=== PATIENT | male | born 1975 | race Caucasian/White ===

== ENCOUNTER 2023-11-06 16:41 | Emergency (ER) | payer SELFPAY ==
[2023-11-06 16:43] VITALS: BP 110/88
[2023-11-06 17:09] LABS: COVID-19 Antigen Negative (Negative)
[2023-11-06] MEDS: NSS 1000 IV (17:48)
[2023-11-06] MEDS: TYLENOL 1000 MG PO (17:50)
[2023-11-06] MEDS: MOTRIN 600 MG PO (17:50)
[2023-11-06] MEDS: DECADRON 10 MG IV (17:51)
[2023-11-06] MEDS: DUONEB 3 ML INH (17:51)
[2023-11-06 18:05] LABS: % Basophils 0.6 % (0-2); % Immature Granulocytes 0.4 % (0-0.5); % Lymphocytes 17.5 % (20.5-51.1); % Monocytes 10.6 % (1.7-9.3); % Neutrophils 69.9 % (42.2-75.2); Absolute Basophils 0.1 10^3/uL (0-0.2); Absolute Eosinophils 0.1 10^3/uL (0-0.7); Absolute Immature Granulocytes 0.1 10^3/uL (0-0.05); Absolute Lymphocytes 2.4 10^3/uL (1.2-3.4); Absolute Monocytes 1.4 10^3/uL (0.1-0.6); Absolute Neutrophils 9.4 10^3/uL (1.4-6.5); Hematocrit 41.5 % (39.0-52.0); Hemoglobin 14.6 g/dL (13.0-18.0); Mean Corp Hgb Conc. 35.2 g/dL (33.0-37.0); Mean Corpuscular Hgb 30.3 pg (27.0-31.0); Mean Corpuscular Volume 86.1 fL (80.0-94.0); Mean Platelet Volume 9.9 fL (7.4-10.4); Nucleated Red Blood Cells % 0 % (-); Platelet Count 358 10^3/uL (130-400); Red Blood Cell Count 4.82 10^6/uL (4.70-6.10); Red Cell Dist. Width 12.2 % (11.5-14.5); White Blood Cell Count 13.5 10^3/uL (4.8-10.8)
[2023-11-06 18:29] LABS: ALT (SGPT) 18 U/L (0-50); AST (SGOT) 19 U/L (17-59); Albumin 3.2 g/dl (3.5-5.0); Alkaline Phosphatase 112 U/L (38-126); Blood Urea Nitrogen 10 mg/dl (9-20); Calcium 8.9 mg/dl (8.4-10.2); Carbon Dioxide 29 mmol/L (22-30); Chloride 94 mmol/L (98-107); Glucose 111 mg/dl (70-99); Potassium 3.8 mmol/L (3.5-5.1); Sodium 131 mmol/L (135-145); Total Bilirubin 0.8 mg/dl (0.2-1.3); Total Protein 6.4 g/dl (6.3-8.2); eGFR > 60.00
--- NOTE | 2023-11-06 18:29 | ED.GENMED ---
History of Present Illness
General
Chief Complaint: Fever
Source: patient and family ()
Exam Limitations: none
Time Seen by Provider: 11/06/23 17:26
Nursing documentation reviewed up to this point in time: agreed with
Travel History
Have you had any contact with someone who has COVID-19?: No
Do you have any symptoms of coronavirus? Fever > 100 degrees, chills, cough, shortness of breath, sore throat, loss of taste or smell, muscle aches, or headache?: Yes
Symptoms:: see triage note
History of Present Illness
History of Present Illness:
The patient is a 48-year-old man with a past medical history of borderline hypertension and hyperlipidemia who is a smoker and comes in with complaints of intermittent shortness of breath for 1 week and fevers and chills for about 4 days. Patient
admits to nasal congestion and mild cough. He denies sore throat. He denies headache. He reports his family had COVID last week but he did not test positive for COVID last week. He denies abdominal pain, vomiting, and diarrhea.
Past History
Past History
ED Past Medical History: HTN and Hypercholesterolemia
ED Past Surgical History: Orthopedic
Social History
Tobacco: Non-smoker
Alcohol: Occasional
Drug: None
Personal:
Living: with family
Employment: Employed
Family History
Family History: Other
Review of Systems
Review of Systems
Allergies reviewed?: Yes
All Other Systems: ROS reviewed and negative except as documented in HPI and ROS
Constitutional: Reports fever, fatigue and chills
EENT: Reports other (Runny nose)
Respiratory: Reports cough and trouble breathing
Cardiac: Denies chest pain
ABD/GI: Reports anorexia
: Reports no symptoms
Musculoskeletal: Reports back pain (Severe body aches, neck pain, back pain)
Neurological: Reports headache
Endocrine: Reports no symptoms
Hematologic/Lymphatic: Reports no symptoms
Psychiatric: Reports no symptoms
Phy Exam
Physical Exam
Physical Exam:
Physical Exam
General: Patient appears flushed but is nontoxic. Conversational
Neck: supple. no meningeal signs. normal posterior pharynx. no pharyngeal erythema or exudate
Heart: Tachycardic. No murmur
Lungs: No tachypnea. Clear breath sounds. No wheezing. Speaks in full sentences
Abdomen: normal bowel sounds. not tender. no CVAT
Neuro: alert and oriented. no focal neurological deficits
Skin: no rash
Psychiatric: well kept. interactive and cooperative
Extremities: no edema. no calf tenderness. negative homans. good distal pulses
Course
Orders/Labs/Results
Orders:
Orders
11/06/23 16:48
COVID-19 Antigen Urgent
Source: Nasal Swab
Influenza A+B Rapid Molecular Urgent
[place] Source: Nasal Swab
Specimen Description:
11/06/23 17:31
0.9% Sodium Chloride 1000 ml [Nss] 1,000 ml IV BOLUS
CR Chest - 2 Views Urgent
Comment:
Reason For Exam: fever
11/06/23 17:45
Acetaminophen [Tylenol] 1,000 mg PO NOW STA
Ibuprofen [Motrin] 600 mg PO NOW STA
11/06/23 17:46
Dexamethasone Sod Phosphate [Decadron] 10 mg IV NOW STA
Ipratropium/Albuterol Sulfate [Duoneb] 3 ml INH R NOW ONE
11/06/23 17:47
Electrocardiogram (*1) Urgent
Reason for Study: Shortness of Breath
EKG- Treatment ONCE
Complete Blood Count/With Diff Urgent
Comprehensive Metabolic Panel Urgent
Monotest Urgent
11/06/23 17:48
Troponin I Urgent
11/06/23 19:24
Doxycycline [Vibramycin] 100 mg PO NOW STA
Abnormal Lab Results
11/06/23
17:47
WBC 13.5 H 10^3/uL
(4.8-10.8)
Abs Immat Gran (auto) 0.1 H 10^3/uL
(0-0.05)
Absolute Neuts (auto) 9.4 H 10^3/uL
(1.4-6.5)
Absolute Monos (auto) 1.4 H 10^3/uL
(0.1-0.6)
Lymphocytes % 17.5 L %
(20.5-51.1)
Monocytes % 10.6 H %
(1.7-9.3)
Sodium 131 L mmol/L
(135-145)
Chloride 94 L mmol/L
(98-107)
Glucose 111 H mg/dl
(70-99)
Albumin 3.2 L g/dl
(3.5-5.0)
11/06/23 17:47
11/06/23 17:47
Vital Signs
Initial and Last Documented VS:
Initial Vital Signs
Temp Pulse Resp BP Pulse Ox
102.1 F H 127 20 110/88 94
11/06/23 16:43 11/06/23 16:43 11/06/23 16:43 11/06/23 16:43 11/06/23 16:43
Last Documented Vital Signs
Temp Pulse Resp BP Pulse Ox
102.1 F H 127 20 110/88 97
11/06/23 16:43 11/06/23 16:43 11/06/23 16:43 11/06/23 16:43 11/06/23 17:19
MDM/Problems Addressed
Differential Diagnosis Includes:
Influenza, COVID, pneumonia, COPD
MDM/Problems Addressed:
Patient presents with shortness of breath for 1 week and acute fevers and chills for 4 days
Chronic conditions affecting care:
Given pt has HTN and hyperlipidemia he is at increased risk of CAD
Chronic conditions affecting care: HTN
*Radiology
Radiology exam reviewed: preliminary read by ED provider (Chest x-ray reviewed by me. Infiltrates seen.) and radiology read reviewed
*Pulse Oximetry
Patient hypoxic: no
*EKG
Interpreted by ED Provider?: Yes
Interpretation: abnormal
Comparison EKG: no comparison EKG present
Rate: tachycardiac
Rhythm: sinus
[place]: normal axis
Interval: normal interval
QRS Pattern: normal QRS
Ischemia: no ischemia
*[facility] Interpretation
Rate: tachycardiac
Interpretation: abnormal
Rhythm: sinus
*Critical Care Note
Total Time (30-74mins, 75-104mins- exclusive of procedures): Not Applicable
Update Note
Update Note:
Patient is still resting comfortably and breathing comfortably. Patient reports that the nebulizer did not really make much of a difference so decision made to not give patient an albuterol inhaler. For me, he never had any wheezing or tachypnea.
He denies any wheezing.
Patient will be given doxycycline for community-acquired pneumonia
ED Attending Note
-
Portions of this chart may have been created with voice recognition software.� Occasional wrong word or��sound alike� substitutions may have occurred due to the inherent limitations of voice recognition software.
Discharge Plan
Departure
Patient Disposition: Home (Routine Discharge)
Date of Disposition: 11/06/23
Time of Disposition: 19:25
Patient with high blood pressure during this ER visit?: Yes
Condition: Good
Covid-19: Negative COVID-19
Discharge Problem:
Pneumonia
Instructions: Pneumonia
Prescriptions:
New
doxycycline hyclate 100 mg capsule
100 mg PO BID Qty: 13 0RF
prednisone 20 mg tablet
20 mg PO DAILY Qty: 5 0RF
No Action
lorazepam 1 MG tablet
1 mg PO Q6HPRN PRN (Reason: spasm) Qty: 2 0RF
Referrals:
Jl Frank MD [Family Provider] -
Stand Alone Forms: Return to Work
Activity Restrictions/Additional Instructions:
Take 1000 mg of Tylenol every 4-6 hours for fever. In addition to the Tylenol, you can also take 600 mg ibuprofen every 6-8 hours
Interventions
Interventions:
*Risk Screen - Suicide Last Done: 11/06/23 17:19
*General Assessment Last Done: 11/06/23 16:43
*Neglect/Abuse Screening Last Done: 11/06/23 17:19
ED- Fall Risk Assessment Last Done: 11/06/23 17:19
*ED COVID-19 Vaccine History Last Done: 11/06/23 16:43
ED- Neurological Assessment Last Done: 11/06/23 18:03
ED-Skin Assessment Last Done: 11/06/23 18:03
[2023-11-06 18:31] LABS: Monotest Negative (Negative)
[2023-11-06 18:40] LABS: Troponin I < 0.012 ng/ml
[2023-11-06] MEDS: VIBRAMYCIN 100 MG PO (19:31)
== END 2023-11-06 19:44 | disposition home or self-care (01) ==
LOC: EMR 16:41
PROVIDERS: Student in an Organized Health Care Education/Training Program; EMERGENCY PHYSICIAN Emergency Medicine; FAMILY PHYSICIAN Internal Medicine
DX: J18.9 Pneumonia, unspecified organism (principal); I10 Essential (primary) hypertension; E78.00 Pure hypercholesterolemia, unspecified
CPT/HCPCS: 99285; 96374; 94640; 71046; 80053; 84484; 85025; 86308; 87502; 87811; 93005

== ENCOUNTER 2024-05-07 17:39 | Emergency (ER) | payer MEDICAID, SELFPAY ==
[2024-05-07 17:46] VITALS: BP 149/87
--- NOTE | 2024-05-07 19:47 | ED.GENMED ---
History of Present Illness
General
Chief Complaint: Musculo-Skeletal Complaint
Source: patient
Exam Limitations: none
Time Seen by Provider: 05/07/24 19:46
Nursing documentation reviewed up to this point in time: agreed with
History of Present Illness
History of Present Illness:
Patient is a 48-year-old male who presents to the ER complaint of left finger pain. He reports he has had this pain in his left middle finger to the MCP joint for the past several weeks. 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 He has not taken anything for this. He went to urgent care was told is arthritis and was given for naproxen but did not fill it yet. He has taken occasional Motrin. He denies any fever/chills. denies redness.
Pt is right hand dominant. He denies any injury he denies any abrasions lacerations.
Past History
Past History
ED Past Medical History: HTN and Hypercholesterolemia
ED Past Surgical History: Orthopedic
Social History
Tobacco: Non-smoker
Alcohol: Occasional
Drug: None
Personal:
Living: with family
Employment: Employed
Family History
Family History: Other
Review of Systems
Review of Systems
Allergies reviewed?: Yes
All Other Systems: ROS reviewed and negative except as documented in HPI and ROS
Constitutional: Reports no symptoms; Denies fever, fatigue or chills
Musculoskeletal: Reports other (pain to left hand middle finger knuckle region )
Skin: Reports other (denies redness)
Neurological: Reports no symptoms
Psychiatric: Reports no symptoms
Phy Exam
General Physical Exam
General Presentation: well appearing
General age: appears stated age
General Skin: warm and dry
General Habitus: normal
General Mental: alert
General Hydration: appears well hydrated
Neurological Exam
Neurological Exam: alert and oriented x3
Musculoskeletal Exam
Musculoskeletal Exam: other (LUE with strong pulses patient is tender along the left MTP joint no obvious swelling erythema no abrasions or lacerations able to flex and extend finger no tenderness along the flexor sheath no pain with passive tendon
extension )
Skin Exam
Skin Exam: normal color and warm/dry
Psychiatric Exam
Psychiatric Exam: normal mood/affect
Course
Orders/Labs/Results
Orders:
Orders
05/07/24 17:49
Finger(s)/Thumb 2 View Lt [CR Finger(s)/thumb Min 2 Vw Lt] Urgent
Comment:
Reason For Exam: middle finger pain for last couple wks
Indicate Which Finger:: Middle Finger
Vital Signs
Initial and Last Documented VS:
Initial Vital Signs
Temp Pulse Resp BP Pulse Ox
98.0 F 96 16 149/87 98
05/07/24 17:46 05/07/24 17:46 05/07/24 17:46 05/07/24 17:46 05/07/24 17:46
Last Documented Vital Signs
Temp Pulse Resp BP Pulse Ox
98.0 F 96 16 149/87 98
05/07/24 17:46 05/07/24 17:46 05/07/24 17:46 05/07/24 17:46 05/07/24 17:46
MDM/Problems Addressed
Differential Diagnosis Includes:
Not limited to arthritis, tendinitis /overuse syndrome less likely flexor tenosynovitis
MDM/Problems Addressed:
Symptoms are consistent w/ overuse /tendonitis . There is no evidence of infection concerning findings on evaluation for flexor tenosynovitis. X-rays show mild degenerative changes of the proximal interphalangeal joint.
there is no obvious swelling or redness no fever chills. Discussed the importance of trying to rest this is much as possible though he does work and cannot take off work. Will place in a splint to use at work if possible or to use outside of
work. Discussed icing. Will give an injection of steroids here in the ER and discharged on steroids for the next 5 days with elevation as much as possible rest and splint. will d/c w/ outpt f/u by hand .
*Pulse Oximetry
Patient hypoxic: no
*Critical Care Note
Total Time (30-74mins, 75-104mins- exclusive of procedures): Not Applicable
ED Attending Note
-
Portions of this chart may have been created with voice recognition software.� Occasional wrong word or��sound alike� substitutions may have occurred due to the inherent limitations of voice recognition software.
Discharge Plan
Departure
Patient Disposition: Home (Routine Discharge)
Date of Disposition: 05/07/24
Time of Disposition: 20:06
Patient with high blood pressure during this ER visit?: Yes
Covid-19: Not Applicable
Discharge Problem:
Tendonitis
Instructions: Overuse Injuries
Prescriptions:
New
prednisone 50 mg tablet
50 mg PO DAILY Qty: 5 0RF
No Action
lorazepam 1 MG tablet
1 mg PO Q6HPRN PRN (Reason: spasm) Qty: 2 0RF
doxycycline hyclate 100 mg capsule
100 mg PO BID Qty: 13 0RF
prednisone 20 mg tablet
20 mg PO DAILY Qty: 5 0RF
Referrals:
lJ Frank MD [Family Provider] -
Wilmer Phillips MD [Active] -
Activity Restrictions/Additional Instructions:
As discussed you were given a dose of steroids here in the ER. A prescription for steroids was sent to pharmacy to take daily for the next 5 days.
Try to rest as much as possible and wear splint for support
Keep elevated as much as possible when not working. Ice the affected area off-and-on for the next 48 hours for 20 minutes at a time. follow up with hand specialist as needed.
Return if any worsening of symptoms of increased pain swelling redness drainage or red streaking fever chills
Interventions
Interventions:
*Risk Screen - Suicide Last Done: 05/07/24 19:57
*General Assessment Last Done: 05/07/24 19:57
*Neglect/Abuse Screening Last Done: 05/07/24 19:57
Discharge Date and Time
Print Language: MALAYSIAN
[2024-05-07] MEDS: MOTRIN 600 MG PO (20:15)
[2024-05-07] MEDS: DECADRON 10 MG IM (20:16)
[2024-05-07 20:23] VITALS: BP 112/77
[2024-05-07 20:25] VITALS: BP 112/77
== END 2024-05-07 20:53 | disposition home or self-care (01) ==
LOC: EMR 17:39
PROVIDERS: EMERGENCY PHYSICIAN Emergency Medicine; FAMILY PHYSICIAN Internal Medicine
DX: M77.9 Enthesopathy, unspecified (principal); I10 Essential (primary) hypertension
CPT/HCPCS: 99284; 96372; 73140

== ENCOUNTER 2024-09-28 16:30 | Emergency (ER) | payer SELFPAY ==
[2024-09-28 16:42] VITALS: BP 151/81
--- NOTE | 2024-09-28 18:04 | ED.GENMED ---
History of Present Illness
General
Chief Complaint: Musculo-Skeletal Complaint
Source: patient
Exam Limitations: none
Time Seen by Provider: 09/28/24 17:52
History of Present Illness
History of Present Illness:
49yo right hand dominant male presenting for evaluation of left elbow pain x 2 weeks. He states he is klutz but does not recall any specific injury. Pain is located in the lateral aspect of the elbow and worsens with gripping things. He has been
taking ibuprofen without much relief. 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 He believes he has tendonitis and is requesting steroids as this has helped him in the past. No paresthesias.
Past History
Past History
ED Past Medical History: HTN and Hypercholesterolemia
ED Past Surgical History: Orthopedic
Social History
Tobacco: Non-smoker
Alcohol: Occasional
Drug: None
Personal:
Living: with family
Employment: Employed
Family History
Family History: Other
Phy Exam
General Physical Exam
General Presentation: well appearing and no apparent distress
General age: appears stated age
General Skin: warm and dry
General Habitus: normal
General Mental: alert
Musculoskeletal Exam
Musculoskeletal Exam: other (L elbow: No deformity or swelling appreciated. +Tenderness along the lateral proximal forearm. ROM intact. Pain elicited with wrist extension. 2+ radial pulse. )
Skin Exam
Skin Exam: normal color and warm/dry
Psychiatric Exam
Psychiatric Exam: normal mood/affect
Course
Orders/Labs/Results
Orders:
Orders
09/28/24 16:45
Elbow, Left [CR Elbow - Left Min 3 Views ] Urgent
Comment:
Reason For Exam: pain
Vital Signs
Initial and Last Documented VS:
Initial Vital Signs
Temp Pulse Resp BP Pulse Ox
98.2 F 80 16 151/81 98
09/28/24 16:42 09/28/24 16:42 09/28/24 16:42 09/28/24 16:42 09/28/24 16:42
Last Documented Vital Signs
Temp Pulse Resp BP Pulse Ox
98.2 F 80 16 151/81 98
09/28/24 16:42 09/28/24 16:42 09/28/24 16:42 09/28/24 16:42 09/28/24 16:42
MDM/Problems Addressed
Differential Diagnosis Includes:
49yoM here with L elbow pain x 2 weeks. 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 No swelling noted on exam and ROM intact although pain is reproduced with wrist extension. LUE is neurovascularly intact. Differential diagnosis
includes but is not limited to: tendonitis, sprain, overuse injury, less likely fracture
X-rays of elbow obtained which shows arthritic changes without fracture. Suspect tendonitis. Patient requesting a prescription for prednisone as this has helped him in the past. Will trial steroid course. Supportive care discussed. Advised f/u with
orthopedics if symptoms persist.
*Critical Care Note
Total Time (30-74mins, 75-104mins- exclusive of procedures): Not Applicable
ED Attending Note
-
Portions of this chart may have been created with voice recognition software.� Occasional wrong word or��sound alike� substitutions may have occurred due to the inherent limitations of voice recognition software.
Discharge Plan
Departure
Patient Disposition: Home (Routine Discharge)
Date of Disposition: 09/28/24
Time of Disposition: 18:06
Patient with high blood pressure during this ER visit?: Yes
Discharge Problem:
Left elbow tendonitis
Instructions: Overuse Injuries (DC)
Prescriptions:
New
prednisone 20 mg tablet
40 mg PO DAILY 5 Days Qty: 10 0RF
No Action
lorazepam 1 MG tablet
1 mg PO Q6HPRN PRN (Reason: spasm) Qty: 2 0RF
doxycycline hyclate 100 mg capsule
100 mg PO BID Qty: 13 0RF
prednisone 20 mg tablet
20 mg PO DAILY Qty: 5 0RF
prednisone 50 mg tablet
50 mg PO DAILY Qty: 5 0RF
Referrals:
Faraz Estrada MD [Active] -
Activity Restrictions/Additional Instructions:
Take prednisone as prescribed. Apply heat to affected area and rest.
Please follow-up with orthopedics.
Interventions
Interventions:
*Risk Screen - Suicide Last Done: 09/28/24 16:42
*General Assessment Last Done: 09/28/24 18:42
*Neglect/Abuse Screening Last Done: 09/28/24 16:42
ED- Fall Risk Assessment Last Done: 09/28/24 18:42
*ED COVID-19 Vaccine History Last Done: 09/28/24 18:42
*Nursing Disposition Last Done: 09/28/24 18:44
ED-Musculoskeletal Assessment Last Done: 09/28/24 18:42
Discharge Date and Time
Discharge Date/Time: 09/28/24 18:30
Print Language: SYRI[place]
== END 2024-09-28 18:30 | disposition home or self-care (01) ==
LOC: EMR 16:30
PROVIDERS: EMERGENCY PHYSICIAN Emergency Medicine
DX: M77.8 Other enthesopathies, not elsewhere classified (principal); M25.522 Pain in left elbow; I10 Essential (primary) hypertension
CPT/HCPCS: 99283; 73080

== ENCOUNTER 2025-04-24 09:42 | Emergency (ER) | payer SELFPAY ==
[2025-04-24 09:42] VITALS: BMI 31.6
[2025-04-24 09:58] VITALS: BP 115/61
[2025-04-24 11:13] VITALS: BP 126/71
--- NOTE | 2025-04-24 11:34 | ED.GENMED ---
History of Present Illness
General
Chief Complaint: Breathing Problem
Source: patient
Exam Limitations: none
Time Seen by Provider: 04/24/25 11:20
Nursing documentation reviewed up to this point in time: agreed with except (Denies chest pain to me)
History of Present Illness
History of Present Illness:
49-year-old male with a past medical history of hypertension, hyperlipidemia, heavy smoker who presents to the emergency department for evaluation of shortness of breath. Patient reports onset of symptoms a few days ago and have been constant and
somewhat worsening over that period of time. He reports sensation of tightness and awareness of his breathing. He denies any chest pain. He reports occasional cough chronically but no significant change recently. Denies any fever or chills or
URI symptoms. He has not noticed any swelling or pain in the legs. He denies any other acute complaints. He says he has occasionally had some shortness of breath related to smoking but symptoms today are unusual for him; he says he had a prior
episode of pneumonia that felt similar. He denies any known cardiac history or history of DVT/PE.
Past History
Past History
ED Past Medical History: HTN and Hypercholesterolemia
ED Past Surgical History: Orthopedic
Social History
Tobacco: Non-smoker
Alcohol: Occasional
Drug: None
Personal:
Living: with family
Employment: Employed
Family History
Family History: Other
Review of Systems
Review of Systems
All Other Systems: ROS reviewed and negative except as documented in HPI and ROS
Constitutional: Denies fever or chills
EENT: Denies sore throat or runny nose
Respiratory: Reports trouble breathing; Denies cough
Cardiac: Denies chest pain, diaphoresis or palpitations
ABD/GI: Denies abdominal pain or nausea
Musculoskeletal: Denies edema
Neurological: Denies dizzy or headache
Phy Exam
Physical Exam
Physical Exam:
General: Awake, alert, oriented x3; no acute distress
Head: Normocephalic, atraumatic
Eyes: Conjunctiva normal
Throat: Airway intact, handling secretions
Neck: Trachea midline, no JVD
Lungs: Clear to auscultation bilaterally, no wheezing, rales, rhonchi; no tachypnea or hypoxia
Heart: Regular rate and rhythm, no murmurs, gallops, or rubs appreciated
Neuro: No gross deficits
Extremities: No edema in extremities, no calf tenderness, equal pulses in all extremities
Scores
Heart Failure Risk
Heart Failure Risk Score: Not Applicable
Heart Score for Chest Pain Patients
STEMI patient?: Not applicable
Withdrawal Assessment of Alcohol
Withdrawal Assessment Completed?: Not applicable
Course
Orders/Labs/Results
Orders:
Orders
04/24/25 10:01
ECG [Electrocardiogram (*1)] Urgent
Reason for Study: Shortness of Breath
Other Reason for Exam: chest discomfort
EKG- Treatment ONCE
04/24/25 11:20
CR Chest - 2 Views Urgent
Comment:
Reason For Exam: sob
04/24/25 11:33
Ipratropium/Albuterol Sulfate [Duoneb] 3 ml INH R NOW STA
04/24/25 11:35
Complete Blood Count/With Diff Urgent
Comprehensive Metabolic Panel Urgent
D-Dimer Urgent
NT-proBNP Urgent
Troponin I Urgent
Abnormal Lab Results
04/24/25
11:35
RBC 4.65 L 10^6/uL
(4.70-6.10)
MCHC 32.4 L g/dL
(33.0-37.0)
Absolute Monos (auto) 0.9 H 10^3/uL
(0.1-0.6)
Monocytes % 10.0 H %
(1.7-9.3)
Glucose 118 H mg/dl
(70-99)
Total Protein 6.2 L g/dl
(6.3-8.2)
04/24/25 11:35
04/24/25 11:35
Vital Signs
Initial and Last Documented VS:
Initial Vital Signs
Temp Pulse Resp BP Pulse Ox
37.0 C 80 16 115/61 97
04/24/25 09:58 04/24/25 09:58 04/24/25 09:58 04/24/25 09:58 04/24/25 09:58
Last Documented Vital Signs
Temp Pulse Resp BP Pulse Ox
37.0 C 66 15 127/66 96
04/24/25 12:00 04/24/25 12:45 04/24/25 12:45 04/24/25 12:00 04/24/25 12:45
MDM/Problems Addressed
Differential Diagnosis Includes:
COPD/bronchitis, pneumonia, pneumothorax, pulmonary embolism, CHF, angina, anemia, anxiety
MDM/Problems Addressed:
49-year-old male with history as noted presents to the ER for evaluation of shortness of breath over the past few days. He is a heavy smoker. Vitals and exam as above. He does seem to be breathing comfortably no appreciable wheezing, could be
mild bronchitis given his smoking history reasonable to trial DuoNeb. Will check labs including a CBC to rule out anemia, CMP. Will check D-dimer, troponin, proBNP. Check an EKG. Check chest x-ray. Will monitor closely reassess after the above.
Labs reviewed: CBC unremarkable�no anemia, CMP no clinically significant abnormalities. proBNP normal, troponin undetectable. EKG shows sinus rhythm. Chest x-ray showed no acute disease. D-dimer negative. Suspect likely some mild bronchitis or
perhaps an element of developing emphysema. Will start on steroid course, albuterol, inhaled steroid/LABA. Patient has follow-up with his primary care physician tomorrow. Stable for discharge. Spoke about return precautions all questions
answered.
Chronic conditions affecting care:
Smoker
*Radiology
Radiology exam reviewed: preliminary read by ED provider
*Pulse Oximetry
SaO2: 97
Oxygen Mode of Delivery: Room air
Patient hypoxic: no (97%)
*EKG
Interpreted by ED Provider?: Yes
Heart Rate: 72
Rate: normal
Rhythm: sinus
[place]: normal axis
Interval: normal interval
QRS Pattern: normal QRS
Ischemia: no ischemia
*Critical Care Note
Total Time (30-74mins, 75-104mins- exclusive of procedures): Not Applicable
Data Reviewed
Review of Other/Old Records Reveals: Labs and Records
Source: patient, records and family (Daughter)
ED Attending Note
-
Portions of this chart may have been created with voice recognition software.� Occasional wrong word or��sound alike� substitutions may have occurred due to the inherent limitations of voice recognition software.
Discharge Plan
Departure
Patient Disposition: Home (Routine Discharge)
Date of Disposition: 04/24/25
Time of Disposition: 13:28
Patient with high blood pressure during this ER visit?: No
Discharge Problem:
Dyspnea
Instructions: Acute Bronchitis, Adult (DC)
Prescriptions:
New
prednisone 10 mg Tablet
See Rx Instructions .ROUTE .COMPLEX Qty: 45 0RF
Rx Instructions:
Take By Mouth:
50 mg daily x3 days, 40 mg daily x3 days,
30 mg daily x3 days, 20 mg daily x3 days,
10 mg daily x3 days
albuterol sulfate [Ventolin HFA] 90 mcg/actuation HFA aerosol inhaler
2 puff inhalation Q6H PRN (Reason: shortness of breath or wheezing) Qty: 8.5 0RF
budesonide-formoterol 80-4.5 mcg/actuation HFA aerosol inhaler
1 puff inhalation BID Qty: 10.2 0RF
No Action
lorazepam 1 MG tablet
1 mg PO Q6HPRN PRN (Reason: spasm) Qty: 2 0RF
doxycycline hyclate 100 mg capsule
100 mg PO BID Qty: 13 0RF
prednisone 20 mg tablet
20 mg PO DAILY Qty: 5 0RF
prednisone 50 mg tablet
50 mg PO DAILY Qty: 5 0RF
prednisone 20 mg tablet
40 mg PO DAILY 5 Days Qty: 10 0RF
Referrals:
Jl Frank MD [Family Provider, Internal Medicine] - Tomorrow
Activity Restrictions/Additional Instructions:
Thank you for visiting the Emergency Department at [facility].
1. Please schedule a follow up appointment as directed. Call first thing tomorrow morning to make an appointment.
2. If indicated, please take your medications as instructed and indicated on discharge paperwork.
3. If any of your symptoms do not improve, or persist, or become more severe within 6-12 hours, please return to the emergency department for further care.
4. Please return to the emergency department if you develop a headache, neck pain/stiffness, fever greater than 100.4F, chest pain, shortness of breath, persistent nausea, vomiting, slurred speech, difficulty walking, numbness/tingling, weakness,
signs of infection or any other symptoms that are worrisome to you.
Please call [phone] if you have any questions.
Interventions
Interventions:
*Risk Screen - Suicide Last Done: 04/24/25 12:05
*General Assessment Last Done: 04/24/25 12:05
*Neglect/Abuse Screening Last Done: 04/24/25 12:05
*ED- Fall Risk Assessment Last Done: 04/24/25 12:05
ED- Cardiac Assessment Last Done: 04/24/25 12:05
ED- Pulmonary Assessment Last Done: 04/24/25 12:05
Discharge Date and Time
Print Language: GERMAN
[2025-04-24 11:58] LABS: Hematocrit 42.6 % (39.0-52.0); Hemoglobin 13.8 g/dL (13.0-18.0); Mean Corp Hgb Conc. 32.4 g/dL (33.0-37.0); Mean Corpuscular Volume 91.6 fL (80.0-94.0); Nucleated Red Blood Cells % 0 % (-); Platelet Count 255 10^3/uL (130-400); Red Cell Dist. Width 13.3 % (11.5-14.5)
[2025-04-24 12:00] VITALS: BP 127/66
[2025-04-24] MEDS: DUONEB 3 ML INH (12:03)
[2025-04-24 12:13] LABS: ALT (SGPT) 17 U/L (0-50); AST (SGOT) 17 U/L (17-59); Albumin 3.7 g/dl (3.5-5.0); Alkaline Phosphatase 101 U/L (38-126); Blood Urea Nitrogen 13 mg/dl (9-20); Calcium 8.8 mg/dl (8.4-10.2); Carbon Dioxide 29 mmol/L (22-30); Chloride 104 mmol/L (98-107); Estimated Creatinine Clearance 119 ml/min; Glucose 118 mg/dl (70-99); Potassium 4.1 mmol/L (3.5-5.1); Sodium 137 mmol/L (135-145); Total Protein 6.2 g/dl (6.3-8.2); eGFR > 60.00
[2025-04-24 12:19] LABS: D-Dimer < 0.27 ug/mlFEU (0.00-0.50)
[2025-04-24 12:24] LABS: Troponin I < 0.012 ng/ml
== END 2025-04-24 13:32 | disposition home or self-care (01) ==
LOC: EMR 09:42
PROVIDERS: EMERGENCY PHYSICIAN Emergency Medicine; FAMILY PHYSICIAN Internal Medicine
DX: R06.00 Dyspnea, unspecified (principal); I10 Essential (primary) hypertension; E78.00 Pure hypercholesterolemia, unspecified
CPT/HCPCS: 99283; 94640; 71046; 80053; 83880; 84484; 85025; 85379; 93005

== ENCOUNTER 2025-05-01 07:40 | Emergency (ER) | payer SELFPAY ==
[2025-05-01 07:41] VITALS: BP 158/89
--- NOTE | 2025-05-01 08:32 | ED.GENMED ---
History of Present Illness
General
Chief Complaint: Breathing Problem
Time Seen by Provider: 05/01/25 08:10
History of Present Illness
History of Present Illness:
49-year-old male without significant past medical history presenting for shortness of breath and palpitations. Patient reports symptoms have been ongoing for the past week, ever since he started testosterone injections. Notes that the testosterone
has been prescribed by his urologist. At onset of symptoms after starting the testosterone, he came to the hospital, had unremarkable workup. He notes that the symptoms are still persistent, with palpitations and dyspnea. Denies chest pain.
Denies fever or cough. Does note that he realized up on arrival to the hospital that he has been administering the wrong dose. He was supposed to give himself 0.5 ml, however has been giving himself too much, 1 mL. Denies any history of blood
clots. Denies any cardiac history or significant family history. Denies additional acute medical complaints
Past History
Past History
ED Past Medical History: HTN and Hypercholesterolemia
ED Past Surgical History: Orthopedic
Social History
Tobacco: Non-smoker
Alcohol: Occasional
Drug: None
Personal:
Living: with family
Employment: Employed
Family History
Family History: Other
Phy Exam
Physical Exam
Physical Exam:
General: Well-appearing, no clinical signs of dehydration, nontoxic and in no acute distress
HEENT: protecting airway
Neck: appears supple
CV: Normal heart rate, regular rhythm
Resp: No accessory muscle use, no increased work of breathing, lungs clear to auscultation bilaterally
Abd: Soft and non-distended, no tenderness to palpation
Extremities: No deformities, no swelling
Neuro: alert, no focal neurologic deficit
: deferred
Rectal: deferred
Psych: Normal affect
Skin: Intact
Scores
Heart Failure Risk
Heart Failure Risk Score: Not Applicable
Course
Orders/Labs/Results
Orders:
Orders
05/01/25 07:45
Electrocardiogram (*1) Urgent
Reason for Study: Shortness of Breath
EKG- Treatment ONCE
Vital Signs
Initial and Last Documented VS:
Initial Vital Signs
Temp Pulse Resp BP Pulse Ox
98.4 F 65 18 158/89 99
05/01/25 07:41 05/01/25 07:41 05/01/25 07:41 05/01/25 07:41 05/01/25 07:41
Last Documented Vital Signs
Temp Pulse Resp BP Pulse Ox
98.4 F 67 14 158/89 99
05/01/25 07:41 05/01/25 08:02 05/01/25 08:02 05/01/25 07:41 05/01/25 08:37
MDM/Problems Addressed
MDM/Problems Addressed:
49-year-old male presenting to the emergency department for palpitations and shortness of breath. Vital signs on arrival are significant for mild hypertension.
On exam, patient resting comfortably, no acute distress or discomfort. EKG obtained upon arrival, nonischemic, normal rhythm with a heart rate of 61. Patient notes that he currently is having palpitations, however on the monitor heart rate is in
the 60s to 70s without concern for any arrhythmia or significant tachycardia. Patient does note some underlying anxiety which could be contributing to symptoms. On review of EMR on 04/24, patient seen in the hospital for similar symptoms,
unremarkable workup including negative troponin, unremarkable BNP. Chest x-ray obtained, no acute cardiopulmonary disease. Patient feels that his symptoms could be contributed to increased dose of testosterone, which is possible. No PE risk
factors. Do not feel patient requires any repeat laboratory work or advanced workup. At this time feel stable for discharge. Advised following up with his prescribing physician. Return precautions discussed and patient verbalized understanding
*Pulse Oximetry
SaO2: 99
Oxygen Mode of Delivery: Room air
Patient hypoxic: no
*EKG
Interpreted by ED Provider?: Yes
EKG Intrepretation Date: 05/01/25
EKG Intrepretation Time: 08:36
Interpretation: normal
Comparison EKG: no changes
Heart Rate: 61
Rate: normal
Rhythm: sinus
[place]: normal axis
Interval: normal interval
QRS Pattern: normal QRS
Ischemia: no ischemia
*Critical Care Note
Total Time (30-74mins, 75-104mins- exclusive of procedures): Not Applicable
ED Attending Note
-
Portions of this chart may have been created with voice recognition software.� Occasional wrong word or��sound alike� substitutions may have occurred due to the inherent limitations of voice recognition software.
Discharge Plan
Departure
Patient Disposition: Home (Routine Discharge)
Date of Disposition: 05/01/25
Time of Disposition: 08:39
Patient with high blood pressure during this ER visit?: No
Condition: Good
Discharge Problem:
Heart palpitations
Instructions: Shortness of breath in adults - ED (DC), Palpitations - ED (DC)
Prescriptions:
No Action
hydrochlorothiazide 12.5 mg Capsule
12.5 mg PO DAILY
Wellbutrin
1 tab PO BID
atorvastatin
1 tab PO DAILY
testosterone
0.5 ml SC TU
Activity Restrictions/Additional Instructions:
You were seen in the emergency department for shortness of breath and palpitations
You were found to have reassuring vital signs and EKG
Please follow-up closely with your primary care physician as well as your urologist.
Return to the emergency department for any worsening of your symptoms, or any development of chest pain, difficulty breathing, abdominal pain with persistent vomiting and inability to tolerate food or liquid by mouth (concern for dehydration),
weakness, headache or confusion, fever greater than 100.4, or any additional symptoms that are concerning to you.
Thank you for choosing [facility].
Interventions
Interventions:
*Risk Screen - Suicide Last Done: 05/01/25 07:41
*General Assessment Last Done: 05/01/25 07:41
*Neglect/Abuse Screening Last Done: 05/01/25 07:41
*ED- Fall Risk Assessment Last Done: 05/01/25 08:03
*ED COVID-19 Vaccine History Last Done: 05/01/25 08:03
*Nursing Disposition Last Done: 05/01/25 08:55
ED- Cardiac Assessment Last Done: 05/01/25 08:03
ED- Pulmonary Assessment Last Done: 05/01/25 08:03
Discharge Date and Time
Discharge Date/Time: 05/01/25 08:50
Print Language: EMIRATI
== END 2025-05-01 08:50 | disposition home or self-care (01) ==
LOC: EMR 07:40
PROVIDERS: EMERGENCY PHYSICIAN Student in an Organized Health Care Education/Training Program; FAMILY PHYSICIAN Internal Medicine
DX: R00.2 Palpitations (principal); I10 Essential (primary) hypertension; E78.00 Pure hypercholesterolemia, unspecified; F41.9 Anxiety disorder, unspecified
CPT/HCPCS: 99283; 93005

== ENCOUNTER 2025-07-24 00:53 | Emergency (ER) | payer BC, SELFPAY ==
[2025-07-24 01:04] VITALS: BP 147/87
[2025-07-24 01:18] VITALS: BP 135/77
[2025-07-24] MEDS: ROCEPHIN 1000 MG IV (02:14)
[2025-07-24] MEDS: DILAUDID 1 MG IV (02:15)
[2025-07-24 02:20] VITALS: BMI 30.7
--- NOTE | 2025-07-24 02:21 | ED.GENMED ---
History of Present Illness
General
Chief Complaint: Skin Problem
Source: patient
Exam Limitations: none
Time Seen by Provider: 07/24/25 01:49
Nursing documentation reviewed up to this point in time: agreed with
History of Present Illness
History of Present Illness:
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
Past History
Past History
ED Past Medical History: HTN and Hypercholesterolemia
ED Past Surgical History: Orthopedic
Social History
Tobacco: Non-smoker
Alcohol: Occasional
Drug: None
Personal:
Living: with family
Employment: Employed
Family History
Family History: Other
Review of Systems
Review of Systems
All Other Systems: Not applicable
Constitutional: Denies fever or fatigue
Musculoskeletal: Reports joint pain and joint swelling
Phy Exam
Physical Exam
Physical Exam:
Physical Exam
General: no apparent distress, not acutely ill
Neck: No jaundice
Heart: s1/s2 regular rate and rhythm, no murmur. equal radial pulses.
Lungs: no acute respiratory distress. clear bilaterally
Neuro: alert and oriented. no focal neurological deficits
Skin: no rash
Psychiatric: well kept. interactive and cooperative
Extremities: Right thumb swollen tender slightly sausagelike no obvious paronychia tender in both flexor and extensor surface unable to fully flex nor
Course
Orders/Labs/Results
Orders:
Orders
07/24/25 01:56
HYDROmorphone [Dilaudid] 1 mg IV NOW STA
Hand, Right 3 View [CR Hand - Right Min 3 Views] Urgent
Comment:
Reason For Exam: thumb swelling
07/24/25 01:57
CefTRIAXone [Rocephin] 1,000 mg IV NOW STA
Vancomycin 1 Gram/200 ml [Vancocin] 1 gram in 200 ml IV NOW
07/24/25 02:11
CBC/With ESR Urgent
CRP [C-Reactive Protein] Urgent
Abnormal Lab Results
07/24/25
02:11
MCHC 32.6 L g/dL
(33.0-37.0)
Absolute Monos (auto) 1.1 H 10^3/uL
(0.1-0.6)
Monocytes % 12.5 H %
(1.7-9.3)
07/24/25 02:11
Vital Signs
Initial and Last Documented VS:
Initial Vital Signs
Temp Pulse Resp BP Pulse Ox
98.4 F 75 14 147/87 97
07/24/25 01:04 07/24/25 01:04 07/24/25 01:04 07/24/25 01:04 07/24/25 01:04
Last Documented Vital Signs
Temp Pulse Resp BP Pulse Ox
98.4 F 75 14 135/77 96
07/24/25 01:04 07/24/25 01:04 07/24/25 01:04 07/24/25 01:18 07/24/25 02:34
MDM/Problems Addressed
Differential Diagnosis Includes:
Flexor tenosynovitis extensor tendon infection felon septic joint foreign body occult fracture
*Pulse Oximetry
SaO2: 97
Oxygen Mode of Delivery: Room air
Patient hypoxic: no
*Critical Care Note
Total Time (30-74mins, 75-104mins- exclusive of procedures): Not Applicable
Update Note
Update Note:
Update concern for infection of the tendon sheath etc., have recommended admission patient states he would like to go home but will stay for some blood work and x-ray antibiotics
2:45 AM update CBC noted inflammatory markers are pending x-ray noted again I suggested admission for IV antibiotics consideration for advanced imaging and/or specialty consultation patient states he has to go away on his 1 car has some family
things to take care of he states he will come back if his symptoms worsen will also give the number for orthopedics on-call
ED Attending Note
-
Portions of this chart may have been created with voice recognition software.� Occasional wrong word or��sound alike� substitutions may have occurred due to the inherent limitations of voice recognition software.
Discharge Plan
Departure
Patient Disposition: Home (Routine Discharge)
Date of Disposition: 07/24/25
Time of Disposition: 02:43
Patient with high blood pressure during this ER visit?: No
Condition: Good
Discharge Problem:
Thumb infection
Instructions: Tenosynovitis, Cellulitis (Skin Infection), Adult (DC)
Prescriptions:
New
amoxicillin-pot clavulanate 875-125 mg tablet
1 tab PO BID Qty: 20 0RF
doxycycline hyclate 100 mg tablet
100 mg PO BID 10 Days Qty: 20 0RF
ibuprofen 600 mg tablet
600 mg PO Q8H PRN (Reason: fever or pain) Qty: 20 0RF
No Action
hydrochlorothiazide 12.5 mg Capsule
12.5 mg PO DAILY
Wellbutrin
1 tab PO BID
atorvastatin
1 tab PO DAILY
testosterone
0.5 ml SC TU
Referrals:
Jl Frank MD [Family Provider, Internal Medicine]
Darin Vega MD [Active, Orthopedics] - Next open appointment
Activity Restrictions/Additional Instructions:
Antibiotics as prescribed,
Follow-up with orthopedics, call tomorrow for an appointment
Return to the ER for increased pain swelling fever or any other concerns
Interventions
Interventions:
*Risk Screen - Suicide Last Done: 07/24/25 01:04
*General Assessment Last Done: 07/24/25 01:20
*Neglect/Abuse Screening Last Done: 07/24/25 01:20
*ED- Fall Risk Assessment Last Done: 07/24/25 01:20
*ED COVID-19 Vaccine History Last Done: 07/24/25 01:20
*ED Influenza Vaccine History Last Done: 07/24/25 01:20
ED-Skin Assessment Last Done: 07/24/25 01:21
Discharge Date and Time
Print Language: IRISH
[2025-07-24 02:31] LABS: Hematocrit 49.1 % (39.0-52.0); Hemoglobin 16.0 g/dL (13.0-18.0); Mean Corp Hgb Conc. 32.6 g/dL (33.0-37.0); Mean Corpuscular Volume 87.5 fL (80.0-94.0); Nucleated Red Blood Cells % 0 % (-); Platelet Count 237 10^3/uL (130-400); Red Cell Dist. Width 12.7 % (11.5-14.5)
[2025-07-24] MEDS: VANCOCIN 200 IV (02:31)
[2025-07-24 02:52] LABS: C-Reactive Protein 29.70 mg/L (0.0-10.00)
[2025-07-24 03:00] VITALS: BP 146/59
== END 2025-07-24 03:46 | disposition home or self-care (01) ==
LOC: EMR 00:53
PROVIDERS: EMERGENCY PHYSICIAN Emergency Medicine; FAMILY PHYSICIAN Internal Medicine
DX: L08.9 Local infection of the skin and subcutaneous tissue, unspecified (principal); M79.644 Pain in right finger(s); I10 Essential (primary) hypertension; E78.00 Pure hypercholesterolemia, unspecified
CPT/HCPCS: 96365; 96375; 99284; 73130; 85025; 85652; 86140

== ENCOUNTER 2025-07-25 10:50 | Inpatient (IN) | payer BC, SELFPAY ==
[2025-07-25 03:01] VITALS: BP 111/82
[2025-07-25 05:37] VITALS: BMI 31.4
[2025-07-25] MEDS: ROCEPHIN 2000 MG IV (05:40)
[2025-07-25] MEDS: DILAUDID 1 MG IV ×5 (05:41→21:10)
[2025-07-25 05:49] LABS: Hematocrit 52.5 % (39.0-52.0); Hemoglobin 17.0 g/dL (13.0-18.0); Mean Corp Hgb Conc. 32.4 g/dL (33.0-37.0); Mean Corpuscular Volume 89.7 fL (80.0-94.0); Nucleated Red Blood Cells % 0 % (-); Platelet Count 259 10^3/uL (130-400); Red Cell Dist. Width 12.6 % (11.5-14.5)
[2025-07-25 05:58] LABS: Blood Urea Nitrogen 10 mg/dl (9-20); Calcium 9.1 mg/dl (8.4-10.2); Carbon Dioxide 27 mmol/L (22-30); Chloride 104 mmol/L (98-107); Estimated Creatinine Clearance 119 ml/min; Glucose 88 mg/dl (70-99); Potassium 4.3 mmol/L (3.5-5.1); Sodium 138 mmol/L (135-145); eGFR > 60.00
[2025-07-25 06:01] LABS: C-Reactive Protein 29.60 mg/L (0.0-10.00)
[2025-07-25] MEDS: VANCOCIN 200 IV (06:06)
[2025-07-25 06:12] VITALS: BP 141/87
--- NOTE | 2025-07-25 06:13 | ED.MUSCINJ ---
HPI-Injury
General
Chief Complaint: Soft Tissue Injury
Source: patient and previous hospital records (ED visit from 24 hours ago.)
Exam Limitations: none
Time Seen by Provider: 07/25/25 04:55
Nursing documentation reviewed up to this point in time: agreed with
History of Present Illness-Injury
Initial Injury comments:
This is a 49-year-old male, dcibp-cjtd-hotpcaow gentleman who complains of right thumb pain that began a few days ago, progressively worse over the past 2 to 3 days. 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
denies any insightful injury. Initially began with pain distal aspect of his right thumb just below the nail edge, noticed global swelling of his right thumb 2 days ago with severe progressive pain. Started on Keflex by his PCP 2 days ago but with
progression of pain was Evaluated in this ED yesterday where he underwent x-ray that was unremarkable. Concern for tenosynovitis versus other deep space infection. Labs reveal mildly elevated CRP. Recommended admission to the hospital for hand
specialist to evaluate the patient declined. He was given an IV dose of Rocephin and vancomycin and prescribed Augmentin/doxycycline and ibuprofen. Patient states he has not picked up these prescriptions as yet. Has continued Keflex, has been
taking ibuprofen without improvement in pain and returns tonight due to worsening pain and swelling of his right thumb.
Past History
Past History
ED Past Medical History: HTN and Hypercholesterolemia
ED Past Surgical History: Orthopedic
Social History
Tobacco: Non-smoker
Alcohol: Occasional
Drug: None
Personal:
Living: with family
Employment: Employed
Family History
Family History: Other
Phy Exam
Physical Exam
Physical Exam:
GENERAL: 49-year-old gentleman appears his stated age, awake and alert, appears in moderate distress related to pain. Cooperative.
EYE: anicteric
NECK: Supple, nontender, no meningismus, no significant adenopathy.
ENT: oral mucosa is moist. No rhinorrhea.
CARDIAC: Regular rate and rhythm. no murmur.
LUNGS: Clear breath sounds bilaterally, no acute respiratory distress, no wheezes/rales/rhonchi
ABDOMEN: Soft, nondistended, without focal tenderness, no r/g, no cvat. normoactive BS.
NEUROLOGICAL: Alert and oriented x3, no focal neuro deficits. Gait is rodriguez and steady.
SKIN: Warm and dry, normal color
MUSCULOSKELETAL: Right thumb with global soft tissue swelling with mild erythema at the base of the nail with moderate tenderness mid to distal thumb with markedly limited flexion as well as extension related to pain. Concern for subungual exudate.
PSYCH: Normal and appropriate interaction.
Injury Course
Orders/Labs/Results
Orders:
Orders
07/25/25 05:07
CefTRIAXone [Rocephin] 2,000 mg IV NOW STA
HYDROmorphone [Dilaudid] 1 mg IV NOW STA
07/25/25 05:09
Vancomycin 1 Gram/200 ml [Vancocin] 1 gram in 200 ml IV NOW
07/25/25 05:35
Basic Metabolic Panel Urgent
CRP [C-Reactive Protein] Urgent
Complete Blood Count/With Diff Urgent
Sed Rate [Erythrocyte Sed Rate] Urgent
07/25/25 05:39
Sterile Water [Sterile Water For Injection] 20 ml .ROUTE .STK-MED
07/25/25 06:28
Ketorolac [Toradol] 30 mg IV NOW STA
Abnormal Lab Results
07/25/25
05:35
Hct 52.5 H %
(39.0-52.0)
MCHC 32.4 L g/dL
(33.0-37.0)
Absolute Monos (auto) 1.1 H 10^3/uL
(0.1-0.6)
Monocytes % 10.2 H %
(1.7-9.3)
C-Reactive Protein 29.60 H mg/L
(0.0-10.00)
07/25/25 05:35
07/25/25 05:35
MDM/Problems Addressed
Differential Diagnosis Includes:
Concern for felon, paronychia, extensor versus flexor tenosynovitis, septic joint.
MDM/Problems Addressed:
Acute progressive pain and swelling right thumb
Progressive pain, swelling despite oral antibiotics and one-time dose of IV antibiotics.
Will recheck labs, initiate IV pain medication, resume IV antibiotics.
There is no definitive fluctuance, no definitive felon formation but certainly in the differential.
I am hesitant to incise laterally or medially as there is no convincing fluctuance/purulent formation.
Consider CT of the thumb.
Would recommend admission to hospitalist with consult to Ortho hand specialist.
*Pulse Oximetry
SaO2: 95
Oxygen Mode of Delivery: Room air
Patient hypoxic: no
*Critical Care Note
Total Time (30-74mins, 75-104mins- exclusive of procedures): Not Applicable
ED Attending Note
-
Portions of this chart may have been created with voice recognition software.� Occasional wrong word or��sound alike� substitutions may have occurred due to the inherent limitations of voice recognition software.
Discharge Plan
Departure
Patient Disposition: Admit
Date of Disposition: 07/25/25
Time of Disposition: 07:06
Admit to: Med/Surg
Presentation/result/management discussed w/ accepting MD/DO: Hospitalist
Condition: Fair
Discharge Problem:
Right thumb tenosynovitis vs felon
Prescriptions:
No Action
hydrochlorothiazide 12.5 mg Capsule
12.5 mg PO DAILY
Wellbutrin
1 tab PO BID
atorvastatin
1 tab PO DAILY
testosterone
0.5 ml SC TU
amoxicillin-pot clavulanate 875-125 mg tablet
1 tab PO BID Qty: 20 0RF
doxycycline hyclate 100 mg tablet
100 mg PO BID 10 Days Qty: 20 0RF
ibuprofen 600 mg tablet
600 mg PO Q8H PRN (Reason: fever or pain) Qty: 20 0RF
Referrals:
Jl Frank MD [Family Provider, Internal Medicine]
Interventions
Interventions:
*Risk Screen - Suicide Last Done: 07/25/25 03:05
*General Assessment Last Done: 07/25/25 03:05
*Neglect/Abuse Screening Last Done: 07/25/25 03:05
*ED- Fall Risk Assessment Last Done: 07/25/25 03:05
*ED COVID-19 Vaccine History Last Done: 07/25/25 03:05
*ED Influenza Vaccine History Last Done: 07/25/25 03:05
ED-Musculoskeletal Assessment Last Done: 07/25/25 04:28
ED-Skin Assessment Last Done: 07/25/25 04:28
Discharge Date and Time
Print Language: AMHARIC
[2025-07-25] MEDS: TORADOL 30 MG IV (06:53)
--- NOTE | 2025-07-25 09:28 | HPS.HSE ---
Family Physician
-
Family Physician: Jl Frank MD
Chief Complaint
-
Right thumb pain
History of Present Illness
49-year-old male with history of hypertension and hypercholesterolemia presenting to the ER reporting right thumb pain that began a few days ago. 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 Patient started to have pain on the
distal aspect of the right thumb since 1 week which has gradually progressed, associated with swelling and erythema. He has been using ibuprofen without much help. No purulent drainage noticed. Pain and swelling has worsened over the past 3 days
and he was started on Keflex by his PCP without any improvement. He was seen in the ER yesterday, was given a dose of Rocephin and vancomycin and was prescribed Augmentin, doxycycline at discharge. Patient has not taken his medications yet. Today
is day 4 of Keflex.
ED course�labs unremarkable except for mildly elevated C-reactive protein 29. X-ray right thumb, with no evidence of osteomyelitis.
Medical History
Past Medical History
Past Medical History: Reports Other (Hypertension, anxiety/depression, chronic insomnia)
Past Surgical History: Reports None
Social History
Tobacco: Smoker
Alcohol: Occasional
Drug: None
Personal:
Living: With Family
Employment: Employed
Family History
Family History: Not pertinent
Allergies / Home Medications
Allergies reflects when Allergies were last updated in [employer].
Home Medications with original date entered in [employer]
Allergy/Medication List:
Allergies
Allergy/AdvReac Type Severity Reaction Status Date / Time
No Known Allergies Allergy Verified 07/24/25 01:03
Home Medications
bupropion HCl 200 mg tablet,12 hr sustained-release (Wellbutrin SR) 200 mg PO BID Mental Health/Anxiety 05/01/25
hydrochlorothiazide 12.5 mg capsule 12.5 mg PO DAILY Fluid Retention/Swelling 05/01/25
cephalexin 500 mg capsule 500 mg PO QID Infection 07/25/25
doxepin 75 mg capsule 75 mg PO HS Sleep 07/25/25
gabapentin 600 mg tablet 600 mg PO TID Neurological Condition 07/25/25
ibuprofen 400 mg tablet 400 mg PO Q6HPRN PRN mild pain 07/25/25
risperidone 2 mg tablet 2 mg PO DAILY@1500 Mental Health 07/25/25
testosterone cypionate 200 mg/mL intramuscular syringe 100 mg IM TU Hormonal Agent 07/25/25
tirzepatide (weight loss) 2.5 mg/0.5 mL subcutaneous solution (Zepbound) 2.5 mg SC WE endocrine agent 07/25/25
Review of Systems
-
A 12 point ROS was completed and negative except as noted: Yes
Physical Exam
Vital Signs
Vital Signs
Temp Pulse Resp BP Pulse Ox
98.0 F 74 20 141/87 95
07/25/25 06:12 07/25/25 06:12 07/25/25 06:12 07/25/25 06:12 07/25/25 06:14
Physical Exam
General: Well Developed and Well Nourished
HEENT: NormoCephalic and Atraumatic
Respiratory: Clear
Cardiac: S1/S2 and Regular Rhythm
Musculoskeletal: Other (Right thumb swelling, with erythema. No fluctuance. No purulent drainage. ROM at the interphalangeal joint restricted due to swelling, pain)
Skin: Warm and Dry
Neuro: Awake, Alert, Oriented and AO x 3
Psych: Calm
Laboratory Results
-
07/25/25 05:35
07/25/25 05:35
Impression/Plan
-
IMPRESSION:
49-year-old male with history of hypertension, anxiety/depression presenting with right thumb swelling.
PLAN:
#Infection of right thumb
Likely Felon versus abscess versus tenosynovitis versus osteomyelitis
X-ray with no evidence of osteomyelitis
Patient is afebrile, no white count
Failed outpatient Keflex
Will consult Ortho, hand specialist
Check MRI
Start Unasyn, doxycycline
Tetanus shot
#Hypertension
Continue hydrochlorothiazide
#Anxiety/depression
Continue bupropion
Continue risperidone
#Insomnia
Continue doxepin
DVT prophylaxis SCDs
Diet low-sodium
Full code
[2025-07-25] MEDS: MORPHINE SULFATE 2 MG IV (10:39)
--- NOTE | 2025-07-25 11:17 | CM ---
Chart reviewed and spoke with patient at ED bedside
Lives in an apartment with and dtr
Independent with all ADLs and ambulation. 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
no DME
PCP Dr. Jl Frank
RX plan yes
Pharmacy [facility] in [place]
no hx of VN nor SNF
DCP is to go home
CM will continue to follow up for any dcp needs
[2025-07-25 11:51] VITALS: BP 138/77
--- NOTE | 2025-07-25 12:10 | W.PN.UPDATE ---
Update Note
Progress Note Update
I interviewed and examined the patient. Discussed with Dr. Harris and agree with findings and plan as documented in note.
Physical Exam
General: Well Developed and Well Nourished
HEENT: Normocephalic and Atraumatic
Respiratory: Clear
Cardiac: S1/S2 and Regular Rhythm
GI: soft, non tender.
Musculoskeletal: Other (Right thumb swelling, with erythema. No fluctuance. No purulent drainage. ROM at the interphalangeal joint restricted due to swelling, pain)
Skin: Warm and Dry
Neuro: Awake, Alert, Oriented and AO x 3
Psych: Calm
A/p:
#Infection of right thumb
Likely Felon versus abscess versus tenosynovitis versus osteomyelitis
X-ray with no evidence of osteomyelitis
Patient is afebrile, no white count
Failed outpatient Keflex
Will consult Ortho, hand specialist
Check MRI
Start Unasyn, doxycycline
Tetanus shot
#Hypertension
Continue hydrochlorothiazide
#Anxiety/depression
Continue bupropion
Continue risperidone
#Insomnia
Continue doxepin
DVT prophylaxis SCDs
Full code
Total time spent to see the patient, examined the patient, review data lab result, discuss treatment plan with patient, resident, ER doctor, nursing staff, around 75 minutes
--- NOTE | 2025-07-25 12:30 | PTCARENOTE ---
Received pt from ER via stretcher,accompanied by ER staff. Pt AAO x3, HYLTON well, able to ambulate to bed, no c/o weakness/dizziness. VSS. On room air- pulseox 96%, no SOOB noted. Abd soft, rounded, no c/o abd discomfort. Pt voided in BR upon
arrival to unit. Afebrile; skin W/D/I; Rt thumb sl reddened/edematous; pt c/o pain at site.. Oriented to 4East, currently resting in bed. Will continue to monitor.
--- NOTE | 2025-07-25 12:33 | PTCARENOTE ---
Rn internet marketing coordinator- Completed patient's admission assessment remotely. Patient states that he has been requsting a nicotine patch. Patient smokes [address] [place] texted Dr Harris who then ordered a nicotine patch.
[2025-07-25] MEDS: ADACEL 0.5 ML IM (13:32)
[2025-07-25] MEDS: NICODERM TRANSDERMAL 14 MG TRANSDERM (15:01)
[2025-07-25] MEDS: RISPERDAL 2 MG PO (15:01)
[2025-07-25] MEDS: UNASYN IV ×2 (15:02→20:42)
[2025-07-25] MEDS: FLUSH (NSS) 1 FLUSH IV ×2 (15:02→17:50)
[2025-07-25 15:31] VITALS: BP 142/80
[2025-07-25] MEDS: NEURONTIN 600 MG PO ×2 (16:17→21:11)
[2025-07-25] MEDS: TYLENOL 1000 MG PO ×2 (16:17→21:11)
--- NOTE | 2025-07-25 16:45 | PTCARENOTE ---
Pt resting comfortably since arrival on unit. Pt c/o Rt thumb pain-good effect with IV Dilaudid. MRI of Rt thumb completed. OOB to BR/ambulatory in room, mariluz well. Will continue to monitor.
--- NOTE | 2025-07-25 17:22 | W.PN.UPDATE ---
Update Note
Progress Note Update
Imaging and chart reviewed. I did discuss with primary team this afternoon.
MRI without definitive fluid collection
49-year-old male with right thumb pain and swelling concerning for infectious etiology. No definitive fluid collection identified on MRI. I would recommend continued immobilization, pain control, antibiotics per primary team. Will plan to
evaluate patient in AM. Please keep patient n.p.o. for potential surgical intervention if little to no improvement upon evaluation in AM.
Nonweightbearing right upper extremity, recommend immobilization
Pain control
Antibiotics per primary team
Medical management per primary team
Elevation to right upper extremity
N.p.o. at midnight
Please hold anticoagulation in preparation for potential surgical intervention
Will plan to see patient in a.m. for clinical evaluation and discussion of definitive treatment
[2025-07-25] MEDS: WELLBUTRIN SR (12 hour sustained release) 200 MG PO (20:43)
[2025-07-25] MEDS: SINEQUAN 75 MG PO (21:11)
[2025-07-25 23:14] VITALS: BP 125/66
[2025-07-26] VITALS (7 sets, daily range): BP systolic 114–149; BP diastolic 56–85
[2025-07-26] MEDS: DILAUDID 1 MG IV ×4 (01:31→21:22)
[2025-07-26] MEDS: UNASYN IV ×4 (01:31→20:41)
[2025-07-26] MEDS: WELLBUTRIN SR (12 hour sustained release) 200 MG PO ×2 (08:11→21:24)
[2025-07-26] MEDS: NEURONTIN 600 MG PO ×3 (08:11→21:21)
[2025-07-26] MEDS: NICODERM TRANSDERMAL 14 MG TRANSDERM (08:11)
[2025-07-26] MEDS: TYLENOL 1000 MG PO ×3 (08:12→21:22)
[2025-07-26] MEDS: ORETIC 12.5 MG PO (08:12)
[2025-07-26 08:15] LABS: Hematocrit 53.6 % (39.0-52.0); Hemoglobin 16.8 g/dL (13.0-18.0); Mean Corp Hgb Conc. 31.3 g/dL (33.0-37.0); Mean Corpuscular Volume 93.2 fL (80.0-94.0); Nucleated Red Blood Cells % 0 % (-); Platelet Count 230 10^3/uL (130-400); Red Cell Dist. Width 12.6 % (11.5-14.5)
[2025-07-26 08:54] LABS: ALT (SGPT) < 10 U/L (0-50); AST (SGOT) 13 U/L (17-59); Albumin 3.6 g/dl (3.5-5.0); Alkaline Phosphatase 104 U/L (38-126); Blood Urea Nitrogen 8 mg/dl (9-20); Calcium 8.6 mg/dl (8.4-10.2); Carbon Dioxide 29 mmol/L (22-30); Chloride 104 mmol/L (98-107); Estimated Creatinine Clearance 104 ml/min; Glucose 101 mg/dl (70-99); Potassium 4.2 mmol/L (3.5-5.1); Sodium 137 mmol/L (135-145); Total Protein 6.3 g/dl (6.3-8.2); eGFR > 60.00
--- NOTE | 2025-07-26 09:22 | CON.ORTHO ---
Consultation
-
Date/Time Consultation Performed: 900 AM 07/26/2025
Consultation - Orthopedics
History
HPI: 49-year-old male presented emergency department complaints of right thumb pain and swelling. He had failed outpatient oral antibiotics prescribed by his primary care physician was ultimately admitted to the hospitalist service. Orthopedics is
consulted for further evaluation and treatment. This morning patient reports that pain is minimally improved. Well localized to the distal aspect of his right thumb. Notes significant pain when gripping or grasping any object with his thumb.
Denies any trauma or injury. 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 Reports that this is been progressively worsening over the last several days.
Allergies / Home Medications
Past medical history: Hypertension, anxiety depression, insomnia
Past surgical history: None reported
Social history: , active smoker, employed
Family history: Not pertinent
Allergy/AdvReac Type Severity Reaction Status Date / Time
No Known Allergies Allergy Verified 07/24/25 01:03
�Medication �Instructions �Recorded
bupropion HCl 200 mg tablet,12 hr 200 mg PO BID Mental Health/Anxiety 05/01/25
sustained-release (Wellbutrin SR)
hydrochlorothiazide 12.5 mg capsule 12.5 mg PO DAILY Fluid 05/01/25
Retention/Swelling
cephalexin 500 mg capsule 500 mg PO QID Infection 07/25/25
doxepin 75 mg capsule 75 mg PO HS Sleep 07/25/25
gabapentin 600 mg tablet 600 mg PO TID Neurological 07/25/25
Condition
ibuprofen 400 mg tablet 400 mg PO Q6HPRN PRN mild pain 07/25/25
risperidone 2 mg tablet 2 mg PO DAILY@1500 Mental Health 07/25/25
testosterone cypionate 200 mg/mL 100 mg IM TU Hormonal Agent 07/25/25
intramuscular syringe
tirzepatide (weight loss) 2.5 2.5 mg SC WE endocrine agent 07/25/25
mg/0.5 mL subcutaneous solution
(Zepbound)
Vital Signs / Lab Results
Temp Pulse Resp BP Pulse Ox
98.1 F 77 18 134/71 100
07/26/25 08:14 07/26/25 08:14 07/26/25 08:14 07/26/25 08:14 07/26/25 08:14
07/26/25 06:55
07/26/25 06:55
10 point review systems reviewed and negative unless otherwise stated
General: Pleasant, no acute distress at rest
Musculoskeletal right upper extremity
Thumb with mild erythema noted just proximal to the nailbed, moderate swelling noted throughout distal aspect of thumb
There is fairly discrete tenderness palpation along the volar aspect of the distal thumb as well
No expressible drainage although there is appearance of subcutaneous fluid/purulence proximal to the nailbed
Nontender to palpation along the flexor tendon sheath volarly
Patient is able to flex and extend thumb IP MCP joint without significant pain
Diagnostic studies
X-rays right hand as well as MRI right hand independently viewed by myself. Radiology report reviewed. No fractures or radiopaque foreign bodies noted thumb on radiographs. MRI does show some superficial increase signal T2 weighted image both
dorsally and volarly distal aspect of thumb without discrete fluid collection.
Assessment / Plan
49-year-old male worsening right thumb pain concern for paronychia possibly element of a felon as well. I did have a long detail discussion with patient regarding diagnosis and treatment options. He is failed outpatient oral antibiotics as well as
24 hours of IV antibiotics with persistent symptoms. We did discuss surgical intervention. He like to discuss this first with his . We did discuss potentially taking to the OR today for I&D of right thumb. He is going to confirm this with
his but were going to tentatively plan for this to happen later today we discussed risks benefits alternatives to surgery. Discussed the usual and expected perioperative postoperative course. No guarantees were given.
Nonweightbearing right upper extremity
N.p.o.
Please hold anticoagulation
Plan 4 OR later today for I&D right thumb pending further discussion with his , OR availability of medical clearance
Please reach out any questions or concerns
--- NOTE | 2025-07-26 10:51 | W.PN.HOSP.TC ---
Today's Communication/Plan
-
.
Assessment / Plan
Assessment / Plan
Physical Exam
General: Well Developed and Well Nourished
HEENT: Normocephalic and Atraumatic
Respiratory: Clear
Cardiac: S1/S2 and Regular Rhythm
GI: soft, non tender.
Musculoskeletal: Other (Right thumb swelling, with erythema. No fluctuance. No purulent drainage. ROM at the interphalangeal joint restricted due to swelling, pain)
Skin: Warm and Dry
Neuro: Awake, Alert, Oriented and AO x 3
Psych: Calm
A/p:
#Infection of right thumb
Acute paronychia
Still in pain, asking for IV Dilaudid
d/w ortho, plan for I&D today, pt is NPO
X-ray with no evidence of osteomyelitis
MRI is done
c/w Unasyn, doxycycline
Tetanus shot
Appreciate Ortho help
#Hypertension
Continue hydrochlorothiazide
#Anxiety/depression
Continue bupropion
Continue risperidone
#Insomnia
Continue doxepin
He requested another sleep medicine, added PRN Ativan
DVT prophylaxis SCDs
Full code
Total time spent to see the patient, examined the patient, review data lab result, discuss treatment plan with patient, ortho doctor, nursing staff, around 55 minutes
Anticipated Discharge: Within 24 hours
Subjective/Interval History
-
Date of Service: July 26, 2025
Still requiring IV Dilaudid for pain
Objective Data
-
Labs:
Laboratory Results
07/26/25
06:55
WBC 7.9
Hgb 16.8
Hct 53.6 H
Plt Count 230
Sodium 137
Potassium 4.2
Chloride 104
Carbon Dioxide 29
BUN 8 L
Creatinine 0.9
Glucose 101 H
Calcium 8.6
Total Bilirubin 0.4
AST 13 L
ALT < 10
Alkaline Phosphatase 104
Vital Signs:
Vital Signs
Temp Pulse Resp BP Pulse Ox
98.1 F 77 18 134/71 100
07/26/25 08:14 07/26/25 08:14 07/26/25 08:14 07/26/25 08:14 07/26/25 08:14
I&O
07/25/25 07/26/25 07/27/25
06:59 06:59 06:59
Intake Total 300 / 300
Balance 300 / 300
[2025-07-26] MEDS: VIBRAMYCIN 100 MG PO (12:10)
--- NOTE | 2025-07-26 14:02 | CM ---
Chart reviewed. Continues on IV ABX. No fever. Continues to need IV Dilaudid
Plan: Home , no needs
[2025-07-26] MEDS: RISPERDAL 2 MG PO (16:36)
--- NOTE | 2025-07-26 20:15 | PTCARENOTE ---
Report given DAVID Shen. Received pt post R thumb I/D. Patient AAO*3, VSS, 2LNC POX 94%. Pt c/o 04/21 R thumb pain. 1mg IV Dilaudid given as per prn. RUE elevated on pillow. Good cap refill/ intact sensation. Pt tolerating regular diet. All
orders reviewed and acknowledged. Call jimenez within reach.
--- NOTE | 2025-07-26 20:15 | OR.RPT ---
Operative Report
Operative Report
Date
07/26/2025
Anesthesia Type:
Sedation
Operative Indications:
Right thumb paronychia, concern for felon
Operative Findings :
Significant purulence noted eponychial fold, elevated and loose nail
Complications:
None
Implants:
None
Procedure and Technique:
Irrigation and debridement right thumb
INDICATIONS FOR PROCEDURE:
Patient's an active 49-year-old male who sustained spontaneous redness swelling of his right thumb. He failed outpatient antibiotics. Ultimately presented to the emergency department admitted to the hospital service. Orthopedics was consulted.
Patient felt improved on IV antibiotics. Added discussion regarding continued conservative treatment versus surgical intervention. Patient elected to proceed with surgical intervention. We discussed risks benefits and alternatives to surgery. We
discussed the usual and expected perioperative and postoperative course. No guarantees were given. After discussion written informed consent was obtained.
OPERATIVE PROCEDURE:
Patient was seen and identified in the preoperative holding area. Operative extremity was marked. All questions were addressed and answered. He was taken to the operating room where sedation was administered. Operative extremity was prepped and
draped in normal sterile fashion. Nonsterile tourniquet was applied but not inflated. Timeout was performed again identifying the correct operative extremity. Preoperative antibiotics were held for cultures. After timeout digital block was
performed utilizing approximately 5 cc of 1% lidocaine without epinephrine. Utilizing 15 blade. The eponychial fold was elevated and incised. Significant purulence was then visible from the eponychial fold. This was expressed. The nailbed was
found to be quite loose and there was concern for subungual purulence. Because of this, the nail was removed. There was no obvious subungual purulence. Given preoperative examination and concern for felon. A small incision was made over the
radial aspect of the pulp. Blunt hemostat dissection was then performed to break up septae. No significant fluid or purulence was extravasated from the incision. Wound was copiously irrigated with normal saline solution. The wound was packed
with quarter inch iodoform packing. The nail was cleaned and secured to the nailbed keeping the eponychial fold open. This was secured with 2-0 Chromic Gut suture. Sterile dressings were then applied consisting of Xeroform, 4 x 4 gauze, West
wrap, Webril. Patient was placed in a thumb spica splint placed by myself. Anesthesia was averse and patient was taken the PACU in stable condition. Postoperative plans include nonweightbearing to the operative extremity. Plan to see patient in
the a.m. remove packing initiate 3 times daily Betadine soaks. Follow-up cultures.
Disposition:
PACU stable condition
[2025-07-26] MEDS: DILAUDID 0.25 MG IV ×2 (20:42→20:51)
[2025-07-26] MEDS: SINEQUAN 75 MG PO (21:21)
[2025-07-27] VITALS (7 sets, daily range): BP systolic 111–146; BP diastolic 56–83
[2025-07-27] MEDS: UNASYN IV ×4 (01:49→20:49)
[2025-07-27] MEDS: DILAUDID 1 MG IV ×3 (01:50→11:15)
[2025-07-27] MEDS: DULCOLAX 10 MG PO (08:34)
[2025-07-27] MEDS: NEURONTIN 600 MG PO ×3 (08:35→21:41)
[2025-07-27] MEDS: TYLENOL 1000 MG PO ×3 (08:35→21:41)
[2025-07-27] MEDS: FLUSH (NSS) 2 FLUSH IV (08:35)
[2025-07-27] MEDS: ORETIC 12.5 MG PO (08:35)
[2025-07-27] MEDS: HEPARIN 5000 UNITS SC ×2 (08:36→20:49)
[2025-07-27] MEDS: NICODERM TRANSDERMAL 14 MG TRANSDERM (08:36)
[2025-07-27] MEDS: WELLBUTRIN SR (12 hour sustained release) 200 MG PO ×2 (08:36→20:48)
[2025-07-27] MEDS: VIBRAMYCIN 100 MG PO (08:36)
--- NOTE | 2025-07-27 09:40 | W.PN.HOSP.TC ---
Today's Communication/Plan
-
IV Abx
Pain control
wound care per ortho
ok to give SQ heparin
Laxative
Assessment / Plan
Assessment / Plan
Physical Exam
General: Well Developed and Well Nourished
HEENT: Normocephalic and Atraumatic
Respiratory: Clear
Cardiac: S1/S2 and Regular Rhythm
GI: soft, non tender.
Musculoskeletal: Other (Right thumb swelling, with erythema. No fluctuance. No purulent drainage. ROM at the interphalangeal joint restricted due to swelling, pain)
Skin: Warm and Dry
Neuro: Awake, Alert, Oriented and AO x 3
Psych: Calm
A/p:
#Infection of right thumb
Acute paronychia
s/p I& D on 07/26
No complications
await OR culture
c/w Unasyn, doxycycline
Tetanus shot
Appreciate Ortho help
# constipation
likely opioid induced
WIlld give Dulcolax
#Hypertension
Continue hydrochlorothiazide
#Anxiety/depression
Continue bupropion
Continue risperidone
#Insomnia
Continue doxepin
He requested another sleep medicine, added PRN Ativan
DVT prophylaxis , d/w pt, he agreed to SQ heparin
Full code
Total time spent to see the patient, examined the patient, review data lab result, discuss treatment plan with patient, ortho doctor, nursing staff, around 55 minutes
Anticipated Discharge: Within 24 hours
Subjective/Interval History
-
Date of Service: July 27, 2025
No chest pain
No sob
Less pain in finger
Objective Data
-
Vital Signs:
Vital Signs
Temp Pulse Resp BP Pulse Ox
97.9 F 97 16 139/78 94
07/27/25 07:53 07/27/25 07:53 07/27/25 07:53 07/27/25 07:53 07/27/25 07:53
I&O
07/26/25 07/27/25 07/28/25
06:59 06:59 06:59
Intake Total 300 / 300
Balance 300 / 300
--- NOTE | 2025-07-27 11:35 | W.PN.ORTHO ---
Today's Communication / Plan
-
49-year-old male postop day 1 status post I&D right thumb doing well
Nonweightbearing right upper extremity in splint
Packing to remain in place, will plan to pull packing tomorrow
Initiate Betadine soaks 3 times daily
Follow-up cultures
Pain control
Continue antibiotics per primary team
Please reach out with questions or concerns
Subjective
.
.:
Patient reports that pain has improved somewhat. Did have some discomfort overnight.
Vital Signs and Labs
.
Vital Signs and Labs:
Lab Results
07/26/25 06:55
07/26/25 06:55
Temp Pulse Resp BP Pulse Ox
97.9 F 97 16 139/78 94
07/27/25 07:53 07/27/25 07:53 07/27/25 07:53 07/27/25 07:53 07/27/25 07:53
Physical Exam
-
Musculoskeletal right upper extremity
Dressing removed, packing in place, nail remains sutured in place
Moderate swelling
Limited motion IP joint flexion extension
Post cap refill
[2025-07-27] MEDS: RISPERDAL 2 MG PO (14:47)
[2025-07-27] MEDS: SENOKOT-S 1 TABLET PO (18:29)
[2025-07-27] MEDS: SINEQUAN 75 MG PO (21:41)
[2025-07-28] MEDS: UNASYN IV ×4 (01:10→20:11)
[2025-07-28 07:25] VITALS: BP 120/74
[2025-07-28] MEDS: DULCOLAX PO (09:02)
[2025-07-28] MEDS: VIBRAMYCIN 100 MG PO (09:02)
[2025-07-28] MEDS: ORETIC 12.5 MG PO (09:03)
[2025-07-28] MEDS: NICODERM TRANSDERMAL 14 MG TRANSDERM (09:03)
[2025-07-28] MEDS: NEURONTIN 600 MG PO ×3 (09:03→21:06)
[2025-07-28] MEDS: WELLBUTRIN SR (12 hour sustained release) 200 MG PO ×2 (09:03→20:12)
[2025-07-28] MEDS: TYLENOL 1000 MG PO ×3 (09:03→21:06)
[2025-07-28] MEDS: HEPARIN 5000 UNITS SC ×2 (09:04→20:11)
--- NOTE | 2025-07-28 09:39 | W.PN.HOSP.TC ---
Today's Communication/Plan
-
Await culture
c/w IV Abx
Wound care
Assessment / Plan
Assessment / Plan
Physical Exam
General: Well Developed and Well Nourished
HEENT: Normocephalic and Atraumatic
Respiratory: Clear
Cardiac: S1/S2 and Regular Rhythm
GI: soft, non tender.
Musculoskeletal: Other (Right thumb swelling, with erythema. No fluctuance. No purulent drainage. ROM at the interphalangeal joint restricted due to swelling, pain)
Skin: Warm and Dry
Neuro: Awake, Alert, Oriented and AO x 3
Psych: Calm
A/p:
#Infection of right thumb
Acute paronychia
s/p I& D on 07/26
Pain is much less, did not require IV Dilaudid over night. Will do PRN Tramadol with Tylenol . c/w wound care/ Betadine soaks 3 times daily
await OR culture, so far showing gram-negative rods/gram-positive cocci. Culture may take long, if no result in 72 hours, then possibility to discharge on oral antibiotic to follow culture and outpatient setting.
c/w Unasyn, doxycycline
Tetanus shot
Appreciate Ortho help
# constipation
likely opioid induced
Resolved.
#Hypertension
Continue hydrochlorothiazide
#Anxiety/depression
Continue bupropion
Continue risperidone
#Insomnia
Continue doxepin
He requested another sleep medicine, added PRN Ativan
DVT prophylaxis , d/w pt, he agreed to SQ heparin
Full code
Total time spent to see the patient, examined the patient, review data lab result, discuss treatment plan with patient, ortho doctor, nursing staff, around 55 minutes
Anticipated Discharge: 24 - 48 hours
Subjective/Interval History
-
Date of Service: July 28, 2025
No chest pain
No sob
Objective Data
-
Vital Signs:
Vital Signs
Temp Pulse Resp BP Pulse Ox
97.8 F 73 18 120/74 97
07/28/25 07:25 07/28/25 07:25 07/28/25 07:25 07/28/25 07:25 07/28/25 07:25
I&O
07/27/25 07/28/25 07/29/25
06:59 06:59 06:59
Intake Total 1320 / 1320
Balance 1320 / 1320
--- NOTE | 2025-07-28 11:59 | W.PN.ORTHO ---
Today's Communication / Plan
-
49-year-old male now postop day 2 status post I&D right thumb with improvement
Nonweightbearing right upper extremity in splint
Continue 3 times daily Betadine soaks
Pain control
Medical management per primary team
Follow-up cultures-preliminarily growing gram-positive cocci and gram-negative rods
Continue antibiotics per primary team
Follow-up outpatient myself 7 to 10 days on the date of surgery for wound check
Subjective
.
.:
Patient reports the pain has improved quite a bit. Feels comfortable this morning. Requires pain medication.
Vital Signs and Labs
.
Vital Signs and Labs:
Lab Results
07/26/25 06:55
07/26/25 06:55
Temp Pulse Resp BP Pulse Ox
97.8 F 73 18 120/74 97
07/28/25 07:25 07/28/25 07:25 07/28/25 07:25 07/28/25 07:25 07/28/25 07:25
Physical Exam
-
Musculoskeletal right upper extremity
Thumb visualized
No expressible purulence, mild swelling
Packing in place
Nail in appropriate position, sutured in place
--- NOTE | 2025-07-28 12:32 | CM ---
CM following for discharge planning. Pt s/p I&D of R thumb; per attending, culture results may take long, so pt may be discharged on oral antibiotic to follow culture in the outpatient setting.
[2025-07-28] MEDS: RISPERDAL 2 MG PO (14:01)
[2025-07-28 15:31] VITALS: BP 127/75
[2025-07-28] MEDS: SINEQUAN 75 MG PO (21:06)
[2025-07-28 23:14] VITALS: BP 101/57
[2025-07-29] MEDS: UNASYN IV ×2 (01:17→08:20)
[2025-07-29 07:25] VITALS: BP 112/67
[2025-07-29] MEDS: VIBRAMYCIN 100 MG PO (08:26)
[2025-07-29] MEDS: WELLBUTRIN SR (12 hour sustained release) 200 MG PO (08:26)
[2025-07-29] MEDS: NICODERM TRANSDERMAL 14 MG TRANSDERM (08:26)
[2025-07-29] MEDS: NEURONTIN 600 MG PO (08:26)
[2025-07-29] MEDS: HEPARIN 5000 UNITS SC (08:27)
[2025-07-29] MEDS: ORETIC 12.5 MG PO (08:27)
[2025-07-29] MEDS: TYLENOL 1000 MG PO (08:31)
[2025-07-29] MEDS: DULCOLAX PO (08:31)
[2025-07-29 09:45] LABS: Blood Urea Nitrogen 16 mg/dl (9-20); Calcium 8.7 mg/dl (8.4-10.2); Carbon Dioxide 29 mmol/L (22-30); Chloride 102 mmol/L (98-107); Estimated Creatinine Clearance 104 ml/min; Glucose 137 mg/dl (70-99); Potassium 3.9 mmol/L (3.5-5.1); Sodium 133 mmol/L (135-145); eGFR > 60.00
[2025-07-29 10:39] LABS: Hematocrit 52.5 % (39.0-52.0); Hemoglobin 16.4 g/dL (13.0-18.0); Mean Corp Hgb Conc. 31.2 g/dL (33.0-37.0); Mean Corpuscular Volume 92.9 fL (80.0-94.0); Nucleated Red Blood Cells % 0 % (-); Platelet Count 240 10^3/uL (130-400); Red Cell Dist. Width 12.7 % (11.5-14.5)
--- NOTE | 2025-07-29 12:08 | W.PN.HOSP.TC ---
Today's Communication/Plan
-
Monitor vital signs see plan
Patient to follow-up closely with orthopedics and PCP outpatient
Transition to p.o. Levaquin and doxycycline on discharge
Discussed with patient
Time of discharge 38 minutes
Assessment / Plan
Assessment / Plan
Physical Exam
General: Well Developed and Well Nourished
HEENT: Normocephalic and Atraumatic
Respiratory: Clear
Cardiac: S1/S2 and Regular Rhythm
GI: soft, non tender.
Musculoskeletal: Other (Right thumb swelling, with erythema. No fluctuance. No purulent drainage. ROM at the interphalangeal joint restricted due to swelling, pain but is improving)
Neuro: Awake, Alert, Oriented and AO x 3
Psych: Calm
A/p:
#Infection of right thumb
Acute paronychia
s/p I& D on 07/26
Pain is much less, did not require IV Dilaudid over night. Will do PRN Tramadol with Tylenol . Did not require tramadol as well. c/w wound care/ Betadine soaks 3 times daily
await OR culture, so far showing gram-negative rods/gram-positive cocci. Culture may take long, discussed with micro lab, wont be back today. Patient symptomatically improved and has no leukocytosis, fever. Discussed briefly with infectious
disease and was recommended to be discharged on Levaquin and doxycycline. QTc less than 400.advised patient to follow-up closely with PCP and orthopedics
c/w Unasyn, doxycycline
Tetanus shot
Appreciate Ortho help
Mild hyponatremia
Monitor
# constipation
likely opioid induced
Resolved.
#Hypertension
Continue hydrochlorothiazide
#Anxiety/depression
Continue bupropion
Continue risperidone., Patient agreed to hold on discharge until antibiotics are done
#Insomnia
Continue doxepin
He requested another sleep medicine, added PRN Ativan
DVT prophylaxis , d/w pt, he agreed to SQ heparin
Full code
Anticipated Discharge: Today
Subjective/Interval History
-
Date of Service: July 29, 2025
denies nausea
Objective Data
-
Labs:
Laboratory Results
07/29/25
09:16
WBC 7.4
Hgb 16.4
Hct 52.5 H
Plt Count 240
Sodium 133 L
Potassium 3.9
Chloride 102
Carbon Dioxide 29
BUN 16
Creatinine 0.9
Glucose 137 H
Calcium 8.7
Vital Signs:
Vital Signs
Temp Pulse Resp BP Pulse Ox
98.2 F 69 16 112/67 94
07/29/25 07:25 07/29/25 07:25 07/29/25 07:25 07/29/25 07:25 07/29/25 07:25
I&O
07/28/25 07/29/25 07/30/25
06:59 06:59 06:59
Intake Total 1559 / 1560 1919
Balance 1559 / 1560 1919
--- NOTE | 2025-07-29 12:25 | W.DCSUMMARY ---
Discharge Summary
Discharge Data
Date of Admission: 07/25/25
Date of Discharge: 07/29/25
-
Pending Results: Yes
Hospital Course
49-year-old male with past medical history of hypertension, anxiety, depression, insomnia came to the hospital with infection of right thumb with acute paronychia. Patient was seen by orthopedics and was taken for incision and drainage on 07/26.
Culture from drainage was growing rare gram-positive cocci and gram-negative rods. Patient was initially on IV antibiotics. I discussed briefly with infectious disease prior to discharge and they recommended antibiotics to be transition to
Levaquin and doxycycline. Patient instructed closely to follow-up pending cultures with his PCP outpatient. Patient was also instructed to follow-up closely with orthopedics outpatient. Once patient's symptoms continue to improve, he was then
discharged home with instructions to follow-up with all his physicians outpatient.
Discharge Plan
-
Patient Disposition: Home (Routine Discharge)
Discharge Diagnosis/Procedures: Infection of right thumb
Acute paronychia s/p I and D
Condition: Fair
Diet: As tolerated
Activity: As tolerated and Other activity
Additional Activity: Nonweightbearing right upper extremity in splint
Activity Restrictions/Additional Instructions:
Continue 3 times daily Betadine soaks
please have your primary care office call microbiology for cultures results
Referrals:
Jl Frank MD [Family Provider, Internal Medicine] - in less than 1 week
Darren Sofia MD [Active, Orthopedics] - in less than 1 week
Prescriptions:
New
acetaminophen [Tylenol Extra Strength] 500 mg Tablet
1,000 mg PO TID Qty: 0 0RF
doxycycline hyclate 100 mg Capsule
100 mg PO BID Qty: 20 0RF
levofloxacin 750 mg tablet
750 mg PO DAILY Qty: 10 0RF
Continued
hydrochlorothiazide 12.5 mg Capsule
12.5 mg PO DAILY
bupropion HCl [Wellbutrin SR] 200 mg Tablet Sustained-Release 12 Hr
200 mg PO BID
gabapentin 600 mg Tablet
600 mg PO TID
doxepin 75 mg Capsule
75 mg PO HS
ibuprofen 400 mg Tablet
400 mg PO Q6HPRN PRN (Reason: mild pain)
Zepbound 2.5 mg/0.5 mL Solution
2.5 mg SC WE
testosterone cypionate 200 mg/mL Syringe
100 mg IM TU
Held
risperidone 2 mg Tablet
2 mg PO DAILY@1500
Hold Instructions: Until done with abx
Discontinued
cephalexin 500 mg Capsule
500 mg PO QID
Rx Instructions:
for 7 day starting 07/23/25
Discharge Orders:
Discharge Patient (As Directed); Ordered 07/29/25
Ordered By: Narinder Caruso
Discharge Date and Time
Discharge Date/Time: 07/29/25 13:48
Print Language: NICARAGUAN
--- NOTE | 2025-07-29 17:39 | CM ---
Addendum entered by Jessica Kessler 07/29/25 17:41:
Pt transported home by his dtr
Original Note:
Pt discharge home with no needs
== END 2025-07-29 13:48 | disposition home or self-care (01) | DRG 603 ==
LOC: 4 EAST ACU 10:50
PROVIDERS: Student in an Organized Health Care Education/Training Program; ADMITTING PHYSICIAN Internal Medicine; ATTENDING PHYSICIAN Internal Medicine; CONSULT PHYSICIAN Orthopaedic Surgery; EMERGENCY PHYSICIAN Emergency Medicine; FAMILY PHYSICIAN Internal Medicine
PROC: 0HBQXZZ Excision of Finger Nail, External Approach (ICD-10-PCS; 2025-07-26)
PROC: 3E10X8Z Irrigation of Skin and Mucous Membranes using Irrigating Substance (ICD-10-PCS; 2025-07-26)
DX: L03.011 Cellulitis of right finger (principal); F32.A Depression, unspecified; F41.9 Anxiety disorder, unspecified; F51.04 Psychophysiologic insomnia; I10 Essential (primary) hypertension; E78.00 Pure hypercholesterolemia, unspecified; F17.200 Nicotine dependence, unspecified, uncomplicated; Z79.899 Other long term (current) drug therapy
CPT/HCPCS: 73218; 80048; 80053; 85025; 85652; 86140; 87070; 87075; 87077; 87147; 87186; 87205; 90715; 93005; 96374; 96375; 96376; 99284; 99406